=== PATIENT | male | born 1975 | race Hispanic/Latino ===

== ENCOUNTER 2018-12-10 12:04 | Emergency (ER) | payer SELFPAY ==
[2018-12-10] MEDS ORDERED: Fluorescein Opthalmic Strip ONE (12:13)
[2018-12-10] MEDS ORDERED: Proparacaine 0.5% Opth 15 ML BOT ONE (12:13)
[2018-12-10] MEDS ORDERED: Erythromycin Base 0.5% Oint 1 GM TUBE ONE (13:19)
[2018-12-10] MEDS ORDERED: traMADol HCl 50 MG TAB ONE (13:28)
== END 2018-12-10 13:56 | disposition home or self-care (01) ==
LOC: ERS 12:04
DX: T15.02XA Foreign body in cornea, left eye, initial encounter (principal)
CPT/HCPCS: 65222